=== PATIENT | female | born 1955 | race Caucasian/White ===

== ENCOUNTER 2022-12-22 08:48 | Outpatient (OUT) | payer MEDICARE, SELFPAY ==
--- NOTE | 2022-12-22 09:03 | MM_ITS ---
Patient: BIGG MCGRATH Exam Date: 12/22/2022 : 1955 Gender:F Ordering : DR MARIAH POLLARD M.D. Admission #: [id number] Family : Order #: [id number] CLICK HERE TO VIEW EXAM RADIOLOGY REPORT PROCEDURE: MM TOMOSYNTHESIS SCREENING BI COMPARISON: MG MAMM SCREEN ARON W CAD, 01/26/2019. MG MAMM ARON SCRN W CAD DIG, 08/15/2015. MG MAMM ARON SCRN W CAD DIG, 02/22/2014. MG MAMM ARON SCRN W CAD DIG, 12/27/2012. INDICATIONS: Screening Calculator Name NCI Breast Cancer Risk Assessment Tool 5 Year Breast Cancer Risk 2.10% Lifetime Breast Cancer Risk 7.80% Personal Breast Cancer No Personal Ovarian Cancer No Treatments thyroidectomy,radiation(iodine pills) Family Cancers None LOCATION: [facility] BREAST COMPOSITION: Extremely dense, which lowers the sensitivity of mammography. FINDINGS: DIAGNOSTIC CATEGORY 1--NEGATIVE. RIGHT BREAST: No significant suspicious finding. No significant change has occurred. LEFT BREAST: No significant suspicious finding. No significant change has occurred. RECOMMENDATIONS: ROUTINE MAMMOGRAM AND CLINICAL EVALUATION IN 12 MONTHS. PLEASE NOTE: A NORMAL MAMMOGRAM DOES NOT EXCLUDE THE POSSIBILITY OF BREAST CANCER. A CLINICALLY SUSPICIOUS PALPABLE LUMP SHOULD BE BIOPSIED. Dictated by: Isma Nails M.D. on 12/24/2022 at 14:57 Approved by: Isma Nails M.D. on 12/24/2022 at 14:59
--- NOTE | 2022-12-22 09:20 | XR_ITS ---
[address] [address] Patient Name: BIGG MCGRATH MRN: [id number] date: 1955 Sex: F Assigned Patient Location: [facility] Current Patient Location: [facility] Accession/Order Number: [id number] Exam Date: 12/22/2022 09:40 Report Date: 12/22/2022 10:12 At the request of: MARIAH POLLARD Procedure: XR DEXA axial skeleton EXAMINATION: XR DEXA axial skeleton HISTORY: Estrogen Deficiency E28.39 COMPARISON: No relevant comparison available. TECHNIQUE: Dual-energy X-ray absorptiometry (DXA) was performed. FINDINGS: SPINE ANALYSIS: Average bone mineral density is 0.778 g/cm2. T-score (standard deviation relative to young adult mean): -3.4 . HIP ANALYSIS: Lowest bone mineral density is within the right femoral trochanter, 0.339 g/cm2. T-score (standard deviation relative to young adult mean): -4.5 . XR/XR DEXA axial skeleton IMPRESSION: [employer] Classification: Osteoporosis - High Fracture Risk Electronically authenticated by: PAVEL SAUL Date: 12/22/2022 10:12
== END 2022-12-22 08:49 | disposition home or self-care (01) ==
LOC: MAMMO 08:51
PROVIDERS: PCP Internal Medicine; Visit Provider Internal Medicine
DX: Z12.31 Encounter for screening mammogram for malignant neoplasm of breast (principal); E28.39 Other primary ovarian failure; M81.0 Age-related osteoporosis without current pathological fracture
CPT/HCPCS: 77063; 77067; 77080

== ENCOUNTER 2023-01-16 09:44 | Outpatient (OUT) | payer MEDICARE, SELFPAY ==
[2023-01-16 11:25] LABS: Free T4 1.49 ng/dL (0.76-1.46)
[2023-01-16 12:00] LABS: Albumin Level 3.9 g/dL (3.4-5.0); Anion Gap 12.3; BUN Creatinine Ratio 24.7; Calcium 8.8 mg/dL (8.5-10.1); Carbon Dioxide 29.5 mmol/L (21.0-32.0); Chloride 101 mmol/L (98-107); Estimated GFR (African America >60 (>=60); Estimated GFR (Non-African Ame >60 (>=60); Free T3 3.04 pg/mL (2.18-3.98); Glucose 109 mg/dL (74-106); Phosphorus 3.8 mg/dL (2.6-4.7); Potassium 3.8 mmol/L (3.5-5.1); Sodium 139 mmol/L (136-145)
[2023-01-16 12:30] LABS: Magnesium 2.2 mg/dL (1.8-2.4)
[2023-01-16 12:56] LABS: Creatinine Urine Random 43.08 mg/dL (20.00-300.00); Sodium Urine Random 16 mmol/L (30-90)
[2023-01-16 13:39] LABS: Sodium 24 Hour Urine 26 mmol/24h (40-220); Total Volume 24 Hour Urine 1600 mL/24hr
[2023-01-19 16:09] LABS: Thyroglobulin Antibody <1.0 IU/mL (0.0-0.9)
== END 2023-01-16 09:45 | disposition home or self-care (01) ==
LOC: LAB 09:45
PROVIDERS: PCP Internal Medicine; Visit Provider Internal Medicine
DX: M81.0 Age-related osteoporosis without current pathological fracture (principal); E55.9 Vitamin D deficiency, unspecified; E89.0 Postprocedural hypothyroidism; E03.9 Hypothyroidism, unspecified
CPT/HCPCS: 36415; 80069; 82306; 82310; 82340; 82523; 82570; 83735; 83970; 84300; 84432; 84439; 84443; 84481; 86800